=== PATIENT | female | born 1965 | race Caucasian/White ===

== ENCOUNTER 2018-08-31 19:44 | Outpatient (REF) | payer BC, SELFPAY ==
[2018-08-31 20:29] LABS: TSH 2.39 uIU/mL (0.358-3.74)
== END 2018-08-31 20:04 ==
LOC: NCHCN 19:44
PROVIDERS: PCP Nurse Practitioner Family; Visit Provider Nurse Practitioner Family
DX: E03.9 Hypothyroidism, unspecified (principal)
CPT/HCPCS: 84443

== ENCOUNTER 2018-09-26 08:39 | Outpatient (REF) | payer BC, SELFPAY ==
[2018-09-26 22:06] LABS: TSH 0.68 uIU/mL (0.358-3.74)
[2018-09-26 22:20] LABS: Cholesterol 185 mg/dL (50-200); HDL Cholesterol 40 mg/dL (40-60); LDL CHOLESTEROL 126 mg/dL (<100); Triglyceride 82 mg/dL (30-150)
== END 2018-09-26 08:59 ==
LOC: NCHCN 08:39
PROVIDERS: PCP Nurse Practitioner Family; Visit Provider Nurse Practitioner Family
DX: E03.9 Hypothyroidism, unspecified (principal); Z13.220 Encounter for screening for lipoid disorders
CPT/HCPCS: 80061; 83721; 84443

== ENCOUNTER 2019-05-09 17:35 | Outpatient (REF) | payer BC, SELFPAY | END 2019-05-09 17:55 | LOC: NCHCN 17:35 | PROVIDERS: PCP Nurse Practitioner Family; Visit Provider Nurse Practitioner Family | DX: N39.0 Urinary tract infection, site not specified (principal) | CPT/HCPCS: 87086 ==

== ENCOUNTER 2020-10-12 17:42 | Outpatient (REF) | payer OTHER, SELFPAY ==
[2020-10-12 19:49] LABS: Hemoglobin A1C 5.6 % (<5.7)
[2020-10-12 19:52] LABS: TSH 0.42 uIU/mL (0.36-3.74)
== END 2020-10-12 17:43 | disposition home or self-care (01) ==
LOC: NCHCN 17:42
PROVIDERS: PCP Nurse Practitioner Family; Visit Provider Nurse Practitioner Family
DX: E03.9 Hypothyroidism, unspecified (principal); Z13.1 Encounter for screening for diabetes mellitus
CPT/HCPCS: 83036; 84443

== ENCOUNTER 2021-10-19 17:07 | Outpatient (REF) | payer OTHER, SELFPAY ==
[2021-10-19 19:27] LABS: ALT 16 U/L (14-59); AST 9 U/L (15-37); Albumin 3.9 g/dL (3.4-5.0); Alkaline Phosphatase 105 U/L (46-116); Anion Gap 9.9 mmol/L (3-11); BUN 9 mg/dL (7-18); Bilirubin, Total 0.4 mg/dL (0.2-1.0); CO2 26.1 mmol/L (21.0-32.0); CREATININE 0.8 mg/dL (0.55-1.02); Calcium 9.1 mg/dL (8.5-10.1); Chloride 104 mmol/L (98-107); Glucose 104 mg/dL (74-106); Sodium 140 mmol/L (136-145); TSH (W/Ref FT4) 0.58 uIU/mL (0.36-3.74); Total Protein 7.6 g/dL (6.4-8.2)
== END 2021-10-19 17:08 | disposition home or self-care (01) ==
LOC: NCHCN 17:07
PROVIDERS: PCP Nurse Practitioner Family; Visit Provider Physician Assistant
DX: Z00.00 Encounter for general adult medical examination without abnormal findings (principal); E03.9 Hypothyroidism, unspecified; F32.9 Major depressive disorder, single episode, unspecified
CPT/HCPCS: 80053; 84443

== ENCOUNTER 2022-10-20 19:12 | Outpatient (REF) | payer MEDICAID, SELFPAY ==
[2022-10-20 19:59] LABS: ALT 20 U/L (14-59); AST 14 U/L (15-37); Albumin 3.4 g/dL (3.4-5.0); Alkaline Phosphatase 100 U/L (46-116); Anion Gap 7.4 mmol/L (3-11); BUN 16 mg/dL (7-18); Bilirubin, Total 0.2 mg/dL (0.2-1.0); CO2 29.6 mmol/L (21.0-32.0); Calcium 8.8 mg/dL (8.5-10.1); Chloride 105 mmol/L (98-107); Estimated GFR 66.53 (mL/min/1.73m2); Glucose 106 mg/dL (74-106); Potassium 4.1 mmol/L (3.5-5.1); Sodium 142 mmol/L (136-145); TSH 0.99 uIU/mL (0.36-3.74); Total Protein 7.4 g/dL (6.4-8.2)
== END 2022-10-20 19:13 | disposition home or self-care (01) ==
LOC: NCHCN 19:12
PROVIDERS: PCP Nurse Practitioner Family; Visit Provider Physician Assistant
DX: E03.9 Hypothyroidism, unspecified (principal)
CPT/HCPCS: 80053; 84443

== ENCOUNTER 2023-11-15 18:16 | Outpatient (REF) | payer MEDICAID, SELFPAY ==
[2023-11-15 20:54] LABS: TSH (W/Ref FT4) 0.52 uIU/mL (0.36-3.74)
== END 2023-11-15 18:17 | disposition home or self-care (01) ==
LOC: NCHCN 18:16
PROVIDERS: PCP Nurse Practitioner Family; Visit Provider Physician Assistant
DX: E03.9 Hypothyroidism, unspecified (principal)
CPT/HCPCS: 84443

== ENCOUNTER 2024-12-11 22:13 | Outpatient (REF) | payer SELFPAY ==
[2024-12-11 23:51] LABS: TSH (W/Ref FT4) 1.44 uIU/mL (0.36-3.74)
== END 2024-12-11 22:14 | disposition home or self-care (01) ==
LOC: NCHCN 22:13
PROVIDERS: Visit Provider Physician Assistant
DX: E03.9 Hypothyroidism, unspecified (principal)
CPT/HCPCS: 84443